=== PATIENT | male | born 2005 ===

== ENCOUNTER → 2023-03-02 10:59 | Outpatient (CLI) | payer OTHER, SELFPAY ==
--- NOTE | ~2023-03-02 | MR_ITS ---
EXAMINATION: MR knee LT wo con DATE: 03/02/2023 11:31 INDICATION: Medial collateral ligament sprain TECHNIQUE: Magnetic resonance imaging (MRI) of the left knee was performed without intravenous contra st. Sequences included coronal PD-weighted FSE, coronal PD-weighted FS FSE, sagittal T2-weighted FSE , sagittal PD-weighted FS FSE and axial PD weighted fat saturated FSE. COMPARISON: None. FINDINGS: Medial compartment: Medial meniscus is normal. Articular cartilage is normal. Lateral compartment: Lateral meniscus is normal. Articular cartilage is normal. Patellofemoral compartment: Articular cartilage is normal. Ligaments and tendons: Anterior and posterior cruciate ligaments are normal. The fibular collateral ligament complex is norm al. There is minimal increased signal along the anterior superficial margin of the mildly thickened p roximal medial collateral ligament which could be seen with a subacute low-grade sprain. The extensor mechanism is normal. The visualized medial and lateral hamstring tendons as well as the iliotibial b and are normal. Fluid: Physiologic amount of fluid in the joint space. No loose osteochondral bodies identified. Osseous/other: Prominent marrow edema along the lateral nonarticular side of the lateral femoral condyle without a d iscrete fracture line or loss of marrow fat signal which in the setting of trauma most likely represe nts a bone contusion. No fracture or pathologic marrow replacing process. IMPRESSION: 1. Likely bone contusion along the lateral nonarticular side of the lateral femoral condyle. 2. Likely subacute low-grade sprain of the proximal medial collateral ligament. Reviewed, dictated and finalized at location A. [employer] IMPRESSION: 1. Likely bone contusion along the lateral nonarticular side of the lateral fem oral condyle. 2. Likely subacute low-grade sprain of the proximal medial collateral ligament.
== END ==
DX: S83.412A Sprain of medial collateral ligament of left knee, initial encounter (principal); X58.XXXA Exposure to other specified factors, initial encounter
CPT/HCPCS: 73721